=== PATIENT | male | born 1990 | race African-American/Black ===

== ENCOUNTER 2023-09-06 15:23 | Emergency (ER) | payer OTHER ==
[~2023-09-06 15:23] MED LIST: Iopamidol-370 76% 500 ML MDV (1 ML CHARGE) ONE
[2023-09-06] MEDS ORDERED: Ketorolac Tromethamine 30 MG/ML VIAL ONE (15:55)
[2023-09-06 16:33] LABS: #Monocytes 0.6 thou/uL (0.11-0.59); #Neutrophils 3.3 thou/uL (1.40-6.50); %Basophils 0.5 % (0.0-1.0); %Eosinophils 0.3 % (0.0-10.0); %Lymphocytes 34.5 % (21.0-51.0); %Monocytes 10.3 % (0.0-10.0); %Neutrophils 54.2 % (42.0-75.0); Hematocrit 42.1 % (42.0-52.0); Mean Corpuscular HGB CONC 33.3 g/dL (32.0-36.0); Mean Corpuscular Hemoglobin 28.7 pg (27.0-31.0); Mean Corpuscular Volume 86.3 fl (78.0-98.0); Mean Platelet Volume 10.4 fL (7.4-10.4); Platelet Count 227 10x3/uL (130-400); RBC Distribution Width 13.7 % (11.5-14.5); Red Blood Cell (RBC) Count 4.88 mill/uL (4.70-6.10); White Blood Cell (WBC) Count 6.1 10x3/uL (4.8-10.8)
[2023-09-06 16:56] LABS: ALT (SGPT) 14 U/L (8-55); AST (SGOT) 19 U/L (5-34); Albumin 4.6 g/dL (3.5-5.0); Alkaline Phosphatase 56 U/L (40-110); Anion Gap 13 mmol/L (10-20); BUN (Urea Nitrogen) 10 mg/dL (8.9-20.6); Bilirubin, Total 0.9 mg/dL (0.2-1.2); Calc. Creatinine Clearance 0 mL/min (70-130); Calcium 9.5 mg/dL (7.8-10.44); Carbon Dioxide 29 mmol/L (22-29); Chloride 104 mmol/L (98-107); Estimated GFR 99; Globulin 2.7 g/dL (2.4-3.5); Glucose 94 mg/dL (70-105); Potassium 4.6 mmol/L (3.5-5.1); Protein, Total 7.3 g/dL (6.0-8.3); Sodium 141 mmol/L (136-145)
[2023-09-06 16:59] LABS: Troponin I Less than 0.010 ng/mL (< 0.028)
== END 2023-09-06 18:18 ==
LOC: ERS 15:23 → EEVIPCON 15:23 → ERS 18:18
DX: R07.89 Other chest pain (principal); I10 Essential (primary) hypertension; J45.909 Unspecified asthma, uncomplicated; Z79.899 Other long term (current) drug therapy
CPT/HCPCS: 36415; 71045; 71275; 80053; 84484; 85025; 85379; 93005; 96374; J1885; Q9967

== ENCOUNTER 2023-10-10 04:09 | Emergency (ER) | payer OTHER ==
[2023-10-10 04:54] LABS: #Monocytes 0.5 thou/uL (0.11-0.59); #Neutrophils 2.6 thou/uL (1.40-6.50); %Basophils 0.3 % (0.0-1.0); %Eosinophils 0.5 % (0.0-10.0); %Lymphocytes 47.6 % (21.0-51.0); %Monocytes 8.8 % (0.0-10.0); %Neutrophils 42.6 % (42.0-75.0); Hematocrit 42.8 % (42.0-52.0); Mean Corpuscular HGB CONC 32.7 g/dL (32.0-36.0); Mean Corpuscular Hemoglobin 28.2 pg (27.0-31.0); Mean Corpuscular Volume 86.3 fl (78.0-98.0); Mean Platelet Volume 10.8 fL (7.4-10.4); Platelet Count 248 10x3/uL (130-400); RBC Distribution Width 13.8 % (11.5-14.5); Red Blood Cell (RBC) Count 4.96 mill/uL (4.70-6.10); White Blood Cell (WBC) Count 6.1 10x3/uL (4.8-10.8)
[2023-10-10 05:27] LABS: ALT (SGPT) 14 U/L (8-55); AST (SGOT) 17 U/L (5-34); Albumin 4.3 g/dL (3.5-5.0); Alkaline Phosphatase 53 U/L (40-110); Anion Gap 11 mmol/L (10-20); BUN (Urea Nitrogen) 16 mg/dL (8.9-20.6); Bilirubin, Total 0.6 mg/dL (0.2-1.2); Calc. Creatinine Clearance 0 mL/min (70-130); Calcium 9.3 mg/dL (7.8-10.44); Carbon Dioxide 30 mmol/L (22-29); Chloride 102 mmol/L (98-107); Estimated GFR 95; Globulin 2.9 g/dL (2.4-3.5); Glucose 90 mg/dL (70-105); Lipase 19 U/L (8-78); Potassium 3.6 mmol/L (3.5-5.1); Protein, Total 7.2 g/dL (6.0-8.3); Sodium 139 mmol/L (136-145); Troponin I Less than 0.010 ng/mL (< 0.028)
[2023-10-10] MEDS ORDERED: Acetaminophen 500 MG TAB ONE (05:34)
== END 2023-10-10 05:55 ==
LOC: ERS 04:09
DX: R07.81 Pleurodynia (principal); I10 Essential (primary) hypertension; J45.909 Unspecified asthma, uncomplicated; Z79.899 Other long term (current) drug therapy
CPT/HCPCS: 36415; 71045; 80053; 83690; 83880; 84484; 85025; 93005; 94760

== ENCOUNTER 2023-10-19 18:06 | Emergency (ER) | payer OTHER ==
[2023-10-19 18:51] LABS: #Eosinphils 0.1 thou/uL (0.0-0.7); #Monocytes 0.8 thou/uL (0.11-0.59); #Neutrophils 3.2 thou/uL (1.40-6.50); %Basophils 0.5 % (0.0-1.0); %Eosinophils 0.9 % (0.0-10.0); %Lymphocytes 38.3 % (21.0-51.0); %Monocytes 11.4 % (0.0-10.0); %Neutrophils 48.4 % (42.0-75.0); Hematocrit 44.7 % (42.0-52.0); Hemoglobin 15.1 g/dL (14.0-18.0); Mean Corpuscular HGB CONC 33.8 g/dL (32.0-36.0); Mean Corpuscular Hemoglobin 28.6 pg (27.0-31.0); Mean Corpuscular Volume 84.7 fl (78.0-98.0); Platelet Count 232 10x3/uL (130-400); RBC Distribution Width 13.7 % (11.5-14.5); Red Blood Cell (RBC) Count 5.28 mill/uL (4.70-6.10); White Blood Cell (WBC) Count 6.7 10x3/uL (4.8-10.8)
[2023-10-19 19:18] LABS: ALT (SGPT) 18 U/L (8-55); AST (SGOT) 23 U/L (5-34); Albumin 4.3 g/dL (3.5-5.0); Alkaline Phosphatase 55 U/L (40-110); Anion Gap 14 mmol/L (10-20); BUN (Urea Nitrogen) 17 mg/dL (8.9-20.6); Bilirubin, Total 0.6 mg/dL (0.2-1.2); Calc. Creatinine Clearance 0 mL/min (70-130); Calcium 9.5 mg/dL (7.8-10.44); Carbon Dioxide 23 mmol/L (22-29); Chloride 105 mmol/L (98-107); Estimated GFR 96; Glucose 111 mg/dL (70-105); Magnesium 1.9 mg/dL (1.6-2.6); Potassium 4.3 mmol/L (3.5-5.1); Protein, Total 7.3 g/dL (6.0-8.3); Sodium 138 mmol/L (136-145)
[2023-10-19 19:31] LABS: Troponin I Less than 0.010 ng/mL (< 0.028)
== END 2023-10-19 21:55 ==
LOC: ERS 18:06
DX: R07.9 Chest pain, unspecified (principal); I10 Essential (primary) hypertension; E03.9 Hypothyroidism, unspecified; K21.9 Gastro-esophageal reflux disease without esophagitis; Z79.899 Other long term (current) drug therapy
CPT/HCPCS: 36415; 71045; 71275; 80053; 83735; 84484; 85025; 85379; 93005; Q9967

== ENCOUNTER 2023-10-26 11:10 | Emergency (ER) | payer OTHER ==
[2023-10-26 11:50] LABS: Hematocrit 42.2 % (42.0-52.0); Manual Diff?? YES; Mean Corpuscular HGB CONC 33.2 g/dL (32.0-36.0); Mean Corpuscular Hemoglobin 28.5 pg (27.0-31.0); Mean Corpuscular Volume 85.9 fl (78.0-98.0); Mean Platelet Volume 10.8 fL (7.4-10.4); Platelet Count 157 10x3/uL (130-400); Red Blood Cell (RBC) Count 4.91 mill/uL (4.70-6.10); White Blood Cell (WBC) Count 4.2 10x3/uL (4.8-10.8)
[2023-10-26 11:51] LABS: Delete Auto Diff?? YES
[2023-10-26 12:14] LABS: Band 11 % (5-11); CellaVision Operator ID LAB.GE; Large Platelets 18.4 % (0-5); Lymphocytes 46 % (21-51); Monocytes 5 % (0-10); Neutrophil 28 % (42-75); Platelet Adequacy Comment Platelets Normal; Polychromasia SLIGHT = 2-3 cells HPF (0-2); Reactive Lymphocytes 9 % (0-10); Total Cell Count 103
[2023-10-26 12:16] LABS: ALT (SGPT) 14 U/L (8-55); AST (SGOT) 23 U/L (5-34); Albumin 4.1 g/dL (3.5-5.0); Alkaline Phosphatase 52 U/L (40-110); Anion Gap 12 mmol/L (10-20); BUN (Urea Nitrogen) 8 mg/dL (8.9-20.6); Bilirubin, Total 0.4 mg/dL (0.2-1.2); Calc. Creatinine Clearance 0 mL/min (70-130); Calcium 9.5 mg/dL (7.8-10.44); Carbon Dioxide 32 mmol/L (22-29); Chloride 101 mmol/L (98-107); Estimated GFR 108; Globulin 3.2 g/dL (2.4-3.5); Glucose 97 mg/dL (70-105); Potassium 5.1 mmol/L (3.5-5.1); Protein, Total 7.3 g/dL (6.0-8.3); Sodium 140 mmol/L (136-145)
[2023-10-26 12:20] LABS: Troponin I Less than 0.010 ng/mL (< 0.028)
[2023-10-26] MEDS ORDERED: Acetaminophen 500 MG TAB ONE (12:35)
== END 2023-10-26 12:44 ==
LOC: EEVIPCON 11:10 → ERS 11:10
DX: R07.81 Pleurodynia (principal); I10 Essential (primary) hypertension; E03.9 Hypothyroidism, unspecified; K21.9 Gastro-esophageal reflux disease without esophagitis; Z79.899 Other long term (current) drug therapy
CPT/HCPCS: 36415; 71045; 80053; 84484; 85025; 93005

== ENCOUNTER 2023-10-31 08:52 | Emergency (ER) | payer OTHER ==
[2023-10-31 09:39] LABS: #Monocytes 0.6 thou/uL (0.11-0.59); %Basophils 0.4 % (0.0-1.0); %Eosinophils 0.6 % (0.0-10.0); %Lymphocytes 43.9 % (21.0-51.0); %Monocytes 12.5 % (0.0-10.0); %Neutrophils 42.4 % (42.0-75.0); Hematocrit 43.4 % (42.0-52.0); Hemoglobin 14.1 g/dL (14.0-18.0); Mean Corpuscular HGB CONC 32.5 g/dL (32.0-36.0); Mean Corpuscular Volume 86.1 fl (78.0-98.0); Mean Platelet Volume 10.2 fL (7.4-10.4); Platelet Count 328 10x3/uL (130-400); RBC Distribution Width 13.7 % (11.5-14.5); Red Blood Cell (RBC) Count 5.04 mill/uL (4.70-6.10); White Blood Cell (WBC) Count 4.8 10x3/uL (4.8-10.8)
[2023-10-31 10:02] LABS: Troponin I Less than 0.010 ng/mL (< 0.028)
[2023-10-31 10:04] LABS: ALT (SGPT) 14 U/L (8-55); AST (SGOT) 19 U/L (5-34); Alkaline Phosphatase 45 U/L (40-110); Anion Gap 9 mmol/L (10-20); BUN (Urea Nitrogen) 15 mg/dL (8.9-20.6); Bilirubin, Total 0.4 mg/dL (0.2-1.2); Calc. Creatinine Clearance 0 mL/min (70-130); Calcium 9.2 mg/dL (7.8-10.44); Carbon Dioxide 33 mmol/L (22-29); Chloride 102 mmol/L (98-107); Estimated GFR 98; Globulin 3.1 g/dL (2.4-3.5); Glucose 99 mg/dL (70-105); Lipase 22 U/L (8-78); Potassium 4.7 mmol/L (3.5-5.1); Protein, Total 7.1 g/dL (6.0-8.3); Sodium 139 mmol/L (136-145)
[2023-10-31] MEDS ORDERED: Ketorolac Tromethamine 30 MG (1 mL) VIAL ONE (11:11)
== END 2023-10-31 12:12 ==
LOC: ERS 08:52
DX: R07.9 Chest pain, unspecified (principal); I10 Essential (primary) hypertension; E03.9 Hypothyroidism, unspecified; J45.909 Unspecified asthma, uncomplicated; K21.9 Gastro-esophageal reflux disease without esophagitis; Z79.899 Other long term (current) drug therapy
CPT/HCPCS: 36415; 71045; 80053; 83690; 84484; 85025; 93005; 96374; J1885